=== PATIENT | female | born 1985 | race Caucasian/White ===

== ENCOUNTER 2021-07-27 11:13 | Emergency (ER) | payer OTHER ==
[~2021-07-27] VITALS: Ht 167.6 cm; Wt 79.4 kg
[~2021-07-27 11:13] MED LIST: KEFLEX500 MG PO; NUVARING VAGIN1 EACH VAGINAL
== END 2021-07-27 13:11 | disposition home or self-care (01) ==
LOC: ED 11:13
DX: S16.1XXA Strain of muscle, fascia and tendon at neck level, initial encounter (principal); S50.01XA Contusion of right elbow, initial encounter; Z88.0 Allergy status to penicillin; V48.5XXA Car driver injured in noncollision transport accident in traffic accident, initial encounter
CPT/HCPCS: 72040; 73080; 99284-25

== ENCOUNTER 2022-08-06 13:05 | Emergency (ER) | payer OTHER ==
[~2022-08-06] VITALS: Ht 167.6 cm; Wt 81.7 kg
== END 2022-08-06 16:12 | disposition home or self-care (01) ==
LOC: ED 13:05
DX: S06.0X0A Concussion without loss of consciousness, initial encounter (principal); V80.010A Animal-rider injured by fall from or being thrown from horse in noncollision accident, initial encounter; Z88.0 Allergy status to penicillin
CPT/HCPCS: 70450; 99284-25

== ENCOUNTER 2023-10-27 20:11 | Inpatient (IN) | payer OTHER ==
[2023-10-27] MEDS ORDERED: OXYTOCIN/DEXTROSE 5% 20 UNITS/100 ML BAG IV SCH (20:45)
[2023-10-27] MEDS ORDERED: LACTATED RINGER'S 1,000 ML IV SCH (20:45)
[2023-10-27] MEDS ORDERED: MAGNESIUM HYDROXIDE/AL HYDROX 30 ML CUP PO PRN (20:45)
[2023-10-27] MEDS ORDERED: CALCIUM CARBONATE 500 MG CHEW PO PRN (20:45)
[2023-10-27 21:09] LABS: HEMATOCRIT 36.4 % (35.0-50.0); HEMOGLOBIN 12.3 g/dL (12.0-18.0); MCH 29.6 (27-36); MCHC 33.8 g/dl (30-36); MCV 87.5 fl (81-99); RBC 4.16 M/ul (4.3-5.7); RDW 14.4 (10.5-15.0)
[2023-10-27 21:32] LABS: AMPHETAMINES, URINE NEGATIVE (NEGATIVE); BARBITURATES, URINE NEGATIVE (NEGATIVE); BENZODIAZEPINE, URINE NEGATIVE (NEGATIVE); BUPRENORPHINE, URINE NEGATIVE (NEGATIVE); CANNABINOID, URINE NEGATIVE (NEGATIVE); COCAINE, URINE NEGATIVE (NEGATIVE); ECSTASY, URINE NEGATIVE (NEGATIVE); FENTANYL, URINE NEGATIVE (NEGATIVE); METHADONE, URINE NEGATIVE (NEGATIVE); OPIATES, URINE NEGATIVE (NEGATIVE); OXYCODONE, URINE NEGATIVE (NEGATIVE); PHENCYCLIDINE, URINE NEGATIVE (NEGATIVE)
[2023-10-27 21:46] LABS: ABO A; ANTIBODY SCREEN NEGATIVE; RH POSITIVE
[2023-10-28] MEDS ORDERED: BENZOCAINE 60 ML AEROSOL TOP PRN (01:30)
[2023-10-28] MEDS ORDERED: ACETAMINOPHEN 325 MG TAB PO PRN (01:30)
[2023-10-28] MEDS ORDERED: HYDROCORTISONE ACETATE 25 MG SUPP PR PRN (01:30)
[2023-10-28] MEDS ORDERED: HYDROCODONE/ACETA 5/325 TAB PO PRN (01:30)
[2023-10-28] MEDS ORDERED: LIDOCAINE 2% VISCOUS 6 ML SYR TOP ONE ×2 (01:30)
[2023-10-28] MEDS ORDERED: CALCIUM CARBONATE 500 MG CHEW PO PRN (01:30)
[2023-10-28] MEDS ORDERED: OXYTOCIN/0.9 % SODIUM CHLORIDE 500 ML IV SCH (01:30)
[2023-10-28] MEDS ORDERED: MAGNESIUM HYDROXIDE/AL HYDROX 30 ML CUP PO PRN (01:30)
[2023-10-28] MEDS ORDERED: WITCH HAZEL/GLYCERIN 1 EA PAD TOP PRN (01:30)
[2023-10-28] MEDS ORDERED: MAGNESIUM HYDROXIDE 30 ML UDC PO PRN (01:30)
[2023-10-28] MEDS ORDERED: IBUPROFEN 600 MG TAB PO PRN (01:30)
[2023-10-28] MEDS ORDERED: SENNOSIDES/DOCUSATE 1 EA TAB PO SCH (09:00)
[2023-10-28] MEDS ORDERED: LIDOCAINE HCL 1% 30 ML SDV INJ ONE (12:34)
[2023-10-28] MEDS ORDERED: TRANEXAMIC ACID IN NACL,ISO-OS 0 ML IV ONE (14:26)
[2023-10-29 05:42] LABS: HEMATOCRIT 30.9 % (35.0-50.0); HEMOGLOBIN 10.4 g/dL (12.0-18.0); MCH 29.8 (27-36); MCHC 33.7 g/dl (30-36); MCV 88.6 fl (81-99); RBC 3.49 M/ul (4.3-5.7); RDW 14.7 (10.5-15.0)
[2023-10-29 17:11] LABS: HEMATOCRIT 30.9 % (35.0-50.0); HEMOGLOBIN 10.5 g/dL (12.0-18.0); MCH 29.9 (27-36); MCV 88.1 fl (81-99); RBC 3.5 M/ul (4.3-5.7); RDW 14.7 (10.5-15.0)
[2023-10-29 17:25] LABS: ALBUMIN 2.1 g/dL (3.4-5.0); ALBUMIN/GLOBULIN RATIO 0.62 (1.1-2.4); ANION GAP 9.9 (7-21); BILIRUBIN, TOTAL 0.2 ng/dL (0.2-1.0); CALCIUM 8.3 mg/dL (8.5-10.1); CREATININE, SERUM 0.6 mg/dL (0.55-1.02); POTASSIUM 3.9 mmol/L (3.5-5.1); PROTEIN, TOTAL 5.5 g/dL (6.4-8.2)
== END 2023-10-30 11:40 | disposition home or self-care (01) | DRG 807 ==
LOC: FBCO 20:11 → FBC 20:19
PROVIDERS: Obstetrics & Gynecology; ADMIT Obstetrics & Gynecology; ATTEND Obstetrics & Gynecology
PROC: 10E0XZZ Delivery of Products of Conception, External Approach (ICD-10-PCS; principal; 2023-10-28)
PROC: 0KQM0ZZ Repair Perineum Muscle, Open Approach (ICD-10-PCS; 2023-10-28)
DX: O48.0 Post-term pregnancy (principal); Z37.0 Single live birth; O70.1 Second degree perineal laceration during delivery; Z3A.40 40 weeks gestation of pregnancy
CPT/HCPCS: 36415; 80053; 80307; 83615; 84550; 85027; 86850; 86900; 86901; A9270; J2590; J7121